=== PATIENT | male | born 2000 | race Asian ===

== ENCOUNTER 2023-04-01 13:00 | Outpatient (CLI) | payer OTHER ==
--- NOTE | 2023-04-01 16:22 | MRI Report ---
PROCEDURE: Shoulder LT WO INDICATIONS: INJURY OF LEFT SHOULDER TECHNIQUE: Noncontrast oblique coronal T2 fast spin echo with fat saturation, oblique sagittal T1 spin echo and T2 fast spin echo with fat saturation, axial T1 spin echo and T2 fast spin echo with fat saturation t hrough the shoulder. COMPARISON: None. FINDINGS: Image quality: Diagnostic Rotator cuff Bulk: No significant atrophy Teres minor: Intact Supraspinatus: Partial-thickness small articular sided tear at the footplate Mild tendinosis. Infraspinatus: Intact Subscapularis: Mild tendinosis. Bones and bursae GH joint: Trace joint effusion. No subchondral edema. AC joint: Mild degenerative changes Humeral head: Focal edema is seen at the greater tuberosity. No displaced bone fragment is seen on T1 -weighted images. Scapula and acromion: No acute fracture Bursa: No pathologic fluid Capsule Labrum: Not well evaluated on this nonarthrographic study. No discrete tear is identified. Consider M R arthrogram if there is further concern for labral abnormality Long head biceps tendon: Mild intra-articular tendinopathy IGHL: Trace thickening Rotator interval: Mild edema Soft tissues: Unremarkable IMPRESSION: Focal moderate edema at the greater tuberosity of the humerus, representing a nondisplaced fracture/c ontusion. Mild tendinosis of the supraspinatus and subscapularis. Small partial-thickness articular sided supra spinatus tear at the footplate. Mild acromioclavicular degenerative changes. Trace thickening of the inferior glenohumeral ligament as well as mild edema at the rotator interval, possibly capsulitis. Reviewed by: Josh Mccrary MD on 04/01/2023 4:21 PM PST Approved by: Josh Mccrary MD on 04/01/2023 4:21 PM PST Station ID: [id number]
== END 2023-04-01 13:01 | disposition home or self-care (01) ==
LOC: DI 13:00
DX: M75.112 Incomplete rotator cuff tear or rupture of left shoulder, not specified as traumatic (principal); M75.82 Other shoulder lesions, left shoulder; M19.012 Primary osteoarthritis, left shoulder; M24.212 Disorder of ligament, left shoulder